=== PATIENT | female | born 1960 | race Caucasian/White ===

== ENCOUNTER 2021-06-16 13:20 | Emergency (ER) | payer OTHER ==
[2021-06-16] MEDS ORDERED: PROAIR HFA8.5 GM INH (15:36)
[2021-06-16] MEDS ORDERED: VENTOLIN HFA IN18 GM INH (18:34)
== END 2021-06-16 15:50 | disposition home or self-care (01) ==
LOC: FER 13:20
DX: B34.9 Viral infection, unspecified (principal); I10 Essential (primary) hypertension; J45.909 Unspecified asthma, uncomplicated; Z20.822 Contact with and (suspected) exposure to COVID-19; Z88.2 Allergy status to sulfonamides
CPT/HCPCS: 71045; U0002